=== PATIENT | male | born 1985 | race Two or more races ===

== ENCOUNTER 2018-02-15 23:47 | Inpatient (IN) | payer SELFPAY ==
[~2018-02-15] VITALS: Ht 162.6 cm; Wt 59.9 kg
--- NOTE | 2018-02-15 23:58 | Emergency Room Report ---
History of Present Illness General Chief Complaint: Pain Source: Patient, EMS Present Illness HPI Mr. Malhotra is a healthy 30-year-old male who presents without complaint to EMS. Police were called by onlooker who saw patient looking into car windows. He was brought by EMS without any complaints. He did admit to drinking beer and and 1/2 bottle of vodka. He is homeless. Allergies: Coded Allergies: No Known Allergies (Unverified , 02/15/18) Patient History Limited by: language barrier Past Medical History: none Social History: Reports: alcohol use Nursing Documentation-[facility] Past Medical History: No Stated History Review of Systems Constitutional: Denies: fever, malaise Cardiovascular: Denies: chest pain Gastrointestinal: Denies: abdominal pain All Other Systems: negative except mentioned in HPI Physical Exam Vital Signs Date Time Temp Pulse Resp B/P (MAP) Pulse Ox O2 Delivery O2 Flow Rate FiO2 02/15/18 23:43 99.7 120 18 142/92 100 Room Air 99.7 Sp02 EP Interpretation: reviewed, normal General Appearance: no apparent distress, alert, GCS 15, non-toxic, other - disheveled, only wearing dirty sweat pants, no shirts, no shoes Head: normocephalic, atraumatic ENT: hearing grossly normal, normal pharynx, no angioedema, normal voice Neck: full range of motion, supple/symm/no masses Respiratory: chest non-tender, lungs clear, normal breath sounds, speaking full sentences Cardiovascular #1: regular rate, rhythm, no edema Cardiovascular #2: 2+ carotid (R), 2+ carotid (L), 2+ radial (R), 2+ radial (L) , 2+ dorsalis pedis (R), 2+ dorsalis pedis (L) Gastrointestinal: normal bowel sounds, non tender, soft, non-distended, no guarding, no rebound Musculoskeletal: back normal, gait/station normal, normal range of motion, non- tender, calf tenderness Neurologic: alert, oriented x3, responsive, motor strength/tone normal, sensory intact, normal gait, speech normal Psychiatric: judgement/insight normal, memory normal, mood/affect normal, no suicidal/homicidal ideation Skin: normal color, no rash, warm/dry, well hydrated Lymphatic: no adenopathy Medical Decision Making Last Vital Signs Date Time Temp Pulse Resp B/P (MAP) Pulse Ox O2 Delivery O2 Flow Rate FiO2 02/15/18 23:43 99.7 120 18 142/92 100 Room Air 99.7 Lizeth Grier MD Feb 15, 2018 23:58
[2018-02-16] VITALS (32 sets, daily range): BP systolic 95–154; BP diastolic 60–98
[2018-02-16 00:52] LABS: HEMATOCRIT 35.1 % (42.0-52.0); HEMOGLOBIN 11.6 G/DL (14.2-18.0); MEAN CORPUSCULAR VOLUME 98 FL (80-99); PLATELET COUNT 95 K/UL (150-450); RED CELL DISTRIBUTION WIDTH 13.8 % (11.6-14.8); WHITE BLOOD COUNT 10.3 K/UL (4.8-10.8)
[2018-02-16 01:10] LABS: ANION GAP 10 mmol/L (5-15); BLOOD UREA NITROGEN 22 mg/dL (7-18); CALCIUM 9.8 MG/DL (8.5-10.1); CARBON DIOXIDE 26 MMOL/L (21-32); CHLORIDE 104 MMOL/L (98-107); CREATININE 1.1 MG/DL (0.55-1.30); POTASSIUM 3.4 MMOL/L (3.5-5.1); SODIUM 140 MMOL/L (136-145)
[2018-02-16 01:20] LABS: ALANINE AMINOTRANSFERASE 98 U/L (12-78); ALBUMIN 3.9 G/DL (3.4-5.0); ALKALINE PHOSPHATASE 251 U/L (46-116); ASPARTATE AMINO TRANSFERASE 277 U/L (15-37); BILIRUBIN,TOTAL 1.6 MG/DL (0.2-1.0)
[2018-02-16 01:22] LABS: BILIRUBIN,DIRECT 0.4 MG/DL (0.0-0.3)
[2018-02-16] MEDS ORDERED: LORazepam Inj 2mg/ml 1ml IV ONE ×3 (02:00→05:30)
[2018-02-16] MEDS ORDERED: chlordiazePOXIDE 25mg Cap ORAL ONE (02:30)
[2018-02-16] MEDS ORDERED: LORazepam Inj 2mg/ml 1ml ONE ×3 (02:31→03:33)
[2018-02-16] MEDS ORDERED: chlordiazePOXIDE 25mg Cap ONE (02:31)
[2018-02-16] MEDS ORDERED: Folic Acid 1 MG, Magnesium Sulfate 2,000 MG, Multivitamin - 12 Injection 10 ML, Thiamin... IV ONE ×5 (03:00)
[2018-02-16] MEDS ORDERED: LORazepam 20 MG in NS 90 ML IV ONE (03:15)
[2018-02-16] MEDS ORDERED: Thiamine HCl 100mg/ml 2 ml Inj ONE (04:14)
[2018-02-16] MEDS ORDERED: Folic Acid 5mg/ml Vial IV ONE (04:14)
[2018-02-16] MEDS ORDERED: MVI-12 10ml Inj IV ONE (04:18)
[2018-02-16] MEDS ORDERED: [UNRECOGNIZED DRUG - OTHER] IV ONE (05:15)
[2018-02-16] MEDS ORDERED: THIAMINE HCL IV ONE (05:15)
[2018-02-16] MEDS ORDERED: FOLIC ACID IV ONE (05:15)
[2018-02-16] MEDS ORDERED: MULTIVITAMIN IV ONE (05:15)
[2018-02-16 05:27] LABS: INR 1.1 (0.9-1.1)
--- NOTE | 2018-02-16 08:03 | History & Physical ---
History and Physical History & Physicial CC: Leg pain, AMS HPI: 30 M BIB PD to ED after being caught looking into cars, initially in no distress and only c/o b leg pain 2.2 being on his legs all day, started exhibiting signs of delerium in the ED and given concer for DT he was placed on an Ativan gtt. Per pt last EtOH one day prior, EtOH and UTOX neg in ED. At the time of my evaluation pt is sedated on an Ativan gtt, thus no hx obtainable. PMH: EtOH abuse, otherwise unknown PSH: Unknown ALL: NKDA MEDS: Unknown SHx: + EtOH, otherwise unknown FHx: Unknown ROS: Unobtainable PE: Vital Sign - Last 24 Hours 02/15/18 02/16/18 02/16/18 02/16/18 23:43 02:00 04:00 04:03 Temp 99.7 99.7 99.7 99.7 99.7 99.7 Pulse 120 108 105 Resp 18 18 22 22 B/P (MAP) 142/92 118/86 131/84 Pulse Ox 100 100 100 O2 Delivery Room Air Room Air Room Air Room Air 02/16/18 02/16/18 02/16/18 02/16/18 04:15 04:16 04:30 04:30 Temp 99.7 99.7 99.7 99.7 Pulse 95 104 Resp 19 21 19 19 B/P (MAP) 119/71 116/82 Pulse Ox 96 96 O2 Delivery Room Air Room Air Room Air Room Air 02/16/18 02/16/18 02/16/18 02/16/18 04:45 04:45 05:00 05:00 Temp 97.9 97.9 97.9 97.9 Pulse 108 104 Resp 19 19 22 23 B/P (MAP) 124/76 154/89 Pulse Ox 96 96 O2 Delivery Room Air Room Air Room Air Room Air 02/16/18 02/16/18 02/16/18 02/16/18 05:15 05:15 05:30 05:30 Temp 97.9 97.9 97.9 97.9 Pulse 101 97 Resp 20 20 19 19 B/P (MAP) 118/79 110/80 Pulse Ox 96 96 O2 Delivery Room Air Room Air Room Air Room Air 02/16/18 02/16/18 02/16/18 02/16/18 05:45 05:45 06:00 06:00 Temp 97.9 97.9 97.9 97.9 Pulse 94 94 Resp 18 18 B/P (MAP) 114/72 106/66 Pulse Ox 96 95 O2 Delivery Room Air Room Air Room Air Room Air 02/16/18 02/16/18 02/16/18 06:15 06:45 07:00 Temp 97.9 97.9 97.9 97.9 Pulse 90 94 Resp 17 17 17 B/P (MAP) 110/65 106/66 Pulse Ox 97 95 O2 Delivery Room Air Room Air Room Air Intake and Output 02/15/18 02/15/18 02/16/18 15:00 23:00 07:00 Intake Total 2100 ml Output Total 300 ml Balance 1800 ml Sedated RRR CTA S/NT/ND c NABS No C/C/E Laboratory Tests Test 02/16/18 00:30 02/16/18 04:30 Prothrombin Time 11.3 SEC (9.30-11.50) Prothromb Time International Ratio 1.1 (0.9-1.1) Sodium Level Pending Potassium Level Pending Chloride Level Pending Carbon Dioxide Level Pending Blood Urea Nitrogen Pending Creatinine Pending Estimat Glomerular Filtration Rate Pending Glucose Level Pending Calcium Level Pending Total Bilirubin Pending Aspartate Amino Transf (AST/SGOT) Pending Alanine Aminotransferase (ALT/SGPT) Pending Alkaline Phosphatase Pending Ammonia 76 umol/L (11-32) H Total Protein Pending Albumin Pending Globulin Pending ASSESSMENT: AMS, likely 2/2 DT EtOH abuse Abnormal LFT's Anemia Leg pain PLAN: ICU care Titrate Ativan gtt off Banana bag daily [id number] Replete K F/U final CT head Check U/A EEG Monitor MS as sedation wears off Duplex CXR Check B12 & Folate Trend LFT's Abdominal US NPO until MS better DVT Px: Hep SQ 90 min CCT Osmany Aguayo MD Feb 16, 2018 08:03
[2018-02-16 08:21] LABS: ALANINE AMINOTRANSFERASE 89 U/L (12-78); ALBUMIN 3.5 G/DL (3.4-5.0); ALKALINE PHOSPHATASE 237 U/L (46-116); ANION GAP 12 mmol/L (5-15); ASPARTATE AMINO TRANSFERASE 242 U/L (15-37); BILIRUBIN,TOTAL 1.2 MG/DL (0.2-1.0); BLOOD UREA NITROGEN 15 mg/dL (7-18); CALCIUM 8.5 MG/DL (8.5-10.1); CARBON DIOXIDE 23 MMOL/L (21-32); CHLORIDE 104 MMOL/L (98-107); CREATININE 0.7 MG/DL (0.55-1.30); POTASSIUM 2.9 MMOL/L (3.5-5.1); SODIUM 139 MMOL/L (136-145)
[2018-02-16 08:37] LABS: BILIRUBIN,DIRECT 0.6 MG/DL (0.0-0.3)
[2018-02-16] MEDS: Heparin 5000 units/ml inj SUBQ SCH ×2 (09:00→20:43)
[2018-02-16] MEDS: LORazepam 20 MG in NS 90 ML IV SCH ×2 (09:00→22:04)
[2018-02-16] MEDS ORDERED: Folic Acid 1 MG, Magnesium Sulfate 2,000 MG, Multivitamin - 12 Injection 10 ML, Thiamin... IV SCH ×5 (09:30)
--- NOTE | 2018-02-16 10:07 | Diagnostic Imaging Report ---
Indication: Altered level of consciousness Technique: Continuous helical CT scanning of the head was performed without intravenous contrast material. Axial and coronal 5 mm sections were generated. Radiation dose was minimized using automated exposure control Dose: Total Dose Length Product - DLP 1463.[address] Dose Index - CTDIvol(s) 70.38 mGy. Comparison: none Findings: The ventricular system is normal in size and configuration. There is no shift of midline structures. No abnormal extra-axial fluid collections are noted. There is no evidence of intracerebral bleeding. No other abnormal high or low density areas are noted within the brain. Intact calvarium. Visualized orbits and sinuses are unremarkable. Impression: Normal CT scan of the head without contrast material. This agrees with the preliminary interpretation provided overnight by [facility] teleradiology service. The CT scanner at [facility] is accredited by the [employer] and the scans are performed using protocols designed to limit radiation exposure to as low as reasonably achievable to attain images of sufficient resolution adequate for diagnostic evaluation.
[2018-02-16] MEDS: Folic Acid 1 MG, Magnesium Sulfate 2,000 MG, Multivitamin - 12 Injection 10 ML in NS 10... IV SCH (10:14)
[2018-02-16] MEDS: Thiamine 100mg in D5W 55ml IVPB SCH (10:14)
--- NOTE | 2018-02-16 10:34 | Diagnostic Imaging Report ---
Indication: Cough Technique: One view of the chest Comparison: none Findings: Inspiration is suboptimal. There is equivocal mild perihilar interstitial prominence and bronchial wall thickening. Lungs and pleural spaces are otherwise clear. The heart size is normal Impression: Equivocal mild perihilar interstitial prominence and bronchial wall thickening, could indicate bronchitis. Negative for infiltrate
--- NOTE | 2018-02-16 13:55 | Diagnostic Imaging Report ---
Indication: Abdominal pain, abnormal liver function tests and renal function tests, history of alcohol abuse Technique: Vanegas-scale and duplex images of the upper abdomen were obtained Comparison: none Findings: Gallbladder demonstrates no evidence of gallstones. There is some sludge in the gallbladder. The gallbladder wall is thickened, measures 4 mm thick. Sonographic Araiza's sign is negative. Common bile duct measures 4 mm in diameter. No intrahepatic biliary ductal dilatation. Liver demonstrates diffuse increased echogenicity. It demonstrates slight surface nodularity. It is enlarged. No focal abnormality. Portal vein and hepatic veins are patent. Pancreas is unremarkable. Spleen is unremarkable. Left kidney measures 11.1 cm in length. Right kidney measures 10.9 cm length. Both kidneys demonstrate normal echogenicity. There is no hydronephrosis. No focal abnormality . Abdominal aorta is partially obscured by bowel gas, visualized portions are non-aneurysmal . The urinary bladder is distended, calculated volume 646 mL. Calculated prostate volume is 14 mL. Impression: Slightly enlarged liver with increased hepatic echogenicity, compatible with hepatocellular disease. Very mild hepatic surface nodularity may indicate early cirrhotic changes Negative for gallstones. However, there is gallbladder wall thickening and edema. This could be reactive secondary to adjacent hepatocellular inflammation, versus hemodynamic derangements due to liver disease. This could also indicate acute acalculous cholecystitis or acute cholecystitis secondary to occult calculi. Consider nuclear medicine hepatobiliary scan if there is high clinical suspicion. Negative for dilated bile ducts Distended urinary bladder, calculated volume 646 mL Note suboptimal visualization of the abdominal aorta
[2018-02-16 16:46] LABS: APPEARANCE,URINE CLEAR; BILIRUBIN, URINE NEGATIVE (NEGATIVE); COLOR,URINE BROWN; GLUCOSE, URINE (UA) NEGATIVE (NEGATIVE); KETONES,URINE 2+ (NEGATIVE); LEUKOCYTE ESTERASE ,URINE NEGATIVE (NEGATIVE); NITRITE,URINE NEGATIVE (NEGATIVE); PH,URINE 7 (4.5-8.0); PROTEIN,URINE 2+ (NEGATIVE); UROBILINOGEN,URINE 8 MG/DL (0.0-1.0)
[2018-02-17] VITALS (31 sets, daily range): BP systolic 107–138; BP diastolic 58–98
[2018-02-17 06:25] LABS: BASOPHILS % (AUTO) 0.9 % (0.0-2.0); EOSINOPHILS % (AUTO) 2.6 % (0.0-3.0); HEMATOCRIT 32.5 % (42.0-52.0); HEMOGLOBIN 10.5 G/DL (14.2-18.0); LYMPHOCYTES % (AUTO) 10.8 % (20.0-45.0); MEAN CORPUSCULAR VOLUME 99 FL (80-99); NEUTROPHILS % (AUTO) 73.7 % (45.0-75.0); PLATELET COUNT 107 K/UL (150-450); RED BLOOD COUNT 3.27 M/UL (4.70-6.10); RED CELL DISTRIBUTION WIDTH 13.7 % (11.6-14.8); WHITE BLOOD COUNT 7.3 K/UL (4.8-10.8)
[2018-02-17 06:37] LABS: ANION GAP 9 mmol/L (5-15); BLOOD UREA NITROGEN 1 mg/dL (7-18); CALCIUM 8.4 MG/DL (8.5-10.1); CARBON DIOXIDE 24 MMOL/L (21-32); CHLORIDE 107 MMOL/L (98-107); CREATININE 0.6 MG/DL (0.55-1.30); SODIUM 140 MMOL/L (136-145)
--- NOTE | 2018-02-17 08:57 | Pulmonolgy Critical Care Note ---
Critical Care - Asmt/Plan Respiratory: monitor respiratory rate, adjust FIO2 Cardiac: continue to monitor HR/BP Renal: keep IV fluid - decrease rate to 100 Gastrointestinal: start feedings, other - GI eval Endocrine: monitor blood sugar Hematologic: monitor H/H Neurologic: other - Ativan gtt, taper off, MVI/thiamine/foalte, psych evakl Prophylaxis: Protonix, SCDs Disposition: keep in ICU Time Spent (Minutes): 50 Discussed with: nurses, consultants Critical Care - Objective Last 24 Hour Vital Signs Date Time Temp Pulse Resp B/P (MAP) Pulse Ox O2 Delivery O2 Flow Rate FiO2 02/17/18 07:00 88 26 137/92 (107) 93 02/17/18 07:00 26 Venturi Mask 100 02/17/18 06:30 92 25 128/93 (105) 88 02/17/18 06:00 89 32 131/82 (98) 89 02/17/18 06:00 32 Nasal Cannula 2.0 02/17/18 05:30 90 24 116/77 (90) 91 02/17/18 05:00 28 Nasal Cannula 2.0 02/17/18 05:00 98.6 92 28 121/87 (98) 90 98.6 02/17/18 04:30 99 32 124/87 (99) 91 02/17/18 04:00 100.0 95 34 125/86 (99) 88 100.0 02/17/18 04:00 2.0 02/17/18 04:00 34 Nasal Cannula 2.0 02/17/18 04:00 Nasal Cannula 2.0 02/17/18 03:30 95 27 121/74 (90) 93 02/17/18 03:05 93 02/17/18 03:00 95 30 120/75 (90) 91 02/17/18 03:00 30 Nasal Cannula 2.0 02/17/18 02:30 90 31 123/97 (106) 91 02/17/18 02:00 112 27 138/97 (111) 82 02/17/18 02:00 36 Nasal Cannula 2.0 02/17/18 01:30 98.7 111 36 118/71 (87) 82 98.7 02/17/18 01:00 27 Nasal Cannula 2.0 02/17/18 01:00 89 27 128/77 (94) 96 02/17/18 00:30 93 26 128/77 (94) 96 02/17/18 00:00 Nasal Cannula 2.0 02/17/18 00:00 2.0 02/17/18 00:00 26 Nasal Cannula 2.0 02/17/18 00:00 100.0 93 26 112/69 (83) 98 100.0 02/16/18 23:30 92 26 111/70 (84) 98 02/16/18 23:10 97 02/16/18 23:00 25 Nasal Cannula 2.0 02/16/18 23:00 97 26 113/69 (84) 97 02/16/18 22:30 93 29 126/79 (95) 97 02/16/18 22:04 26 2.0 02/16/18 22:00 95 32 117/86 (96) 93 02/16/18 22:00 32 Nasal Cannula 2.0 02/16/18 21:30 94 26 122/82 (95) 94 02/16/18 21:00 98 29 123/86 (98) 92 02/16/18 21:00 29 Nasal Cannula 2.0 02/16/18 20:30 95 31 94 02/16/18 20:00 27 Nasal Cannula 2.0 02/16/18 20:00 Nasal Cannula 2.0 02/16/18 20:00 2.0 02/16/18 20:00 100.0 96 27 121/98 (106) 91 100.0 02/16/18 19:30 104 02/16/18 19:30 102 28 131/75 (93) 91 02/16/18 19:00 108 18 115/81 (92) 91 02/16/18 19:00 23 Nasal Cannula 2.0 02/16/18 18:00 18 Nasal Cannula 2.0 02/16/18 18:00 101.1 104 23 108/70 (83) 95 101.1 02/16/18 17:00 99 18 107/68 (81) 95 02/16/18 17:00 18 Nasal Cannula 2.0 02/16/18 16:00 92 02/16/18 16:00 2.0 02/16/18 16:00 Nasal Cannula 2.0 02/16/18 16:00 19 Nasal Cannula 2.0 02/16/18 16:00 99.5 101 18 100/82 (88) 96 99.5 02/16/18 15:00 92 15 99/75 (83) 95 02/16/18 15:00 14 Room Air 02/16/18 14:00 18 Room Air 02/16/18 14:00 93 16 101/61 (74) 95 02/16/18 13:00 15 Room Air 02/16/18 13:00 95 23 101/60 (74) 96 02/16/18 12:00 97.9 91 22 104/71 (82) 95 97.9 02/16/18 12:00 20 Room Air 02/16/18 12:00 70 02/16/18 12:00 Room Air 02/16/18 11:00 16 Nasal Cannula 02/16/18 11:00 91 25 102/80 (87) 97 02/16/18 10:00 91 21 114/72 (86) 99 02/16/18 10:00 18 Room Air 02/16/18 09:00 94 16 95/61 (72) 99 02/16/18 09:00 18 Room Air Status: awake, other - tremulous but better Condition: improving HEENT: atraumatic, normocephalic Neck: full ROM Lungs: clear Heart: HR/BP stable Abdomen: soft, non-tender, active bowel sounds, feeding tube Extremities: no C/C/E Micro: Microbiology Date/Time Source Procedure Growth Status 02/16/18 04:10 Rectum Received Critical Care - Subjective ROS Limited/Unobtainable: Yes ICU Day: 3 Interval Events: Better, ST, tachypnea, O2 needs inc but currently 100% on RA States he feels better, no cough, no SOB, + tremors, no F/C, no CP Condition: improving IV Access: peripheral EKG Rhythm: Sinus Tachycardia FI02: 100 Fluids: D5NS@150 Drips: Ativan gtt @ 2 I&O: Intake and Output 02/16/18 02/17/18 19:00 07:00 Intake Total 3381.4 ml 1920 ml Output Total 1050 ml 2810 ml Balance 2331.4 ml -890 ml Intake IV Total 3381.4 ml 1920 ml Output Urine Total 1050 ml 2810 ml Labs: Laboratory Tests Test 02/16/18 16:00 02/17/18 05:50 Urine Color Brown Urine Appearance Clear Urine pH 7 (4.5-8.0) Urine Specific [place] 1.010 (1.005-1.035) Urine Protein 2+ (NEGATIVE) H Urine Glucose (UA) Negative (NEGATIVE) Urine Ketones 2+ (NEGATIVE) H Urine Blood Negative (NEGATIVE) Urine Nitrite Negative (NEGATIVE) Urine Bilirubin Negative (NEGATIVE) Urine Urobilinogen 8 MG/DL (0.0-1.0) H Urine Leukocyte Esterase Negative (NEGATIVE) Urine RBC 2-4 /HPF (0 - 0) H Urine WBC 2-4 /HPF (0 - 0) Urine Squamous Epithelial Cells None /LPF (NONE/OCC) Urine Amorphous Sediment Few /LPF (NONE) H Urine Bacteria Few /HPF (NONE) White Blood Count 7.3 K/UL (4.8-10.8) Red Blood Count 3.27 M/UL (4.70-6.10) L Hemoglobin 10.5 G/DL (14.2-18.0) L Hematocrit 32.5 % (42.0-52.0) L Mean Corpuscular Volume 99 FL (80-99) Mean Corpuscular Hemoglobin 32.1 PG (27.0-31.0) H Mean Corpuscular Hemoglobin Concent 32.3 G/DL (32.0-36.0) Red Cell Distribution Width 13.7 % (11.6-14.8) Platelet Count 107 K/UL (150-450) L Mean Platelet Volume 7.8 FL (6.5-10.1) Neutrophils (%) (Auto) 73.7 % (45.0-75.0) Lymphocytes (%) (Auto) 10.8 % (20.0-45.0) L Monocytes (%) (Auto) 12.0 % (1.0-10.0) H Eosinophils (%) (Auto) 2.6 % (0.0-3.0) Basophils (%) (Auto) 0.9 % (0.0-2.0) Sodium Level 140 MMOL/L (136-145) Potassium Level 3.0 MMOL/L (3.5-5.1) L Chloride Level 107 MMOL/L (98-107) Carbon Dioxide Level 24 MMOL/L (21-32) Anion Gap 9 mmol/L (5-15) Blood Urea Nitrogen 1 mg/dL (7-18) L Creatinine 0.6 MG/DL (0.55-1.30) Estimat Glomerular Filtration Rate > 60 mL/min (>60) Glucose Level 118 MG/DL (74-106) H Calcium Level 8.4 MG/DL (8.5-10.1) L Osmany Dunbar MD Feb 17, 2018 08:57
[2018-02-17] MEDS: LORazepam 20 MG in NS 90 ML IV SCH (09:00)
[2018-02-17] MEDS: Heparin 5000 units/ml inj SUBQ SCH ×2 (09:27→21:39)
[2018-02-17 09:50] LABS: ALANINE AMINOTRANSFERASE 98 U/L (12-78); ALBUMIN 3.1 G/DL (3.4-5.0); ALKALINE PHOSPHATASE 224 U/L (46-116); ASPARTATE AMINO TRANSFERASE 214 U/L (15-37); BILIRUBIN,DIRECT 0.7 MG/DL (0.0-0.3); BILIRUBIN,TOTAL 1.3 MG/DL (0.2-1.0)
[2018-02-17] MEDS: Folic Acid 1 MG, Magnesium Sulfate 2,000 MG, Multivitamin - 12 Injection 10 ML in NS 10... IV SCH (10:00)
[2018-02-17] MEDS: Thiamine 100mg in D5W 55ml IVPB SCH (10:02)
[2018-02-17] MEDS: Lactulose 10gm/15ml UDC ORAL SCH ×2 (13:29→17:55)
--- NOTE | 2018-02-17 16:11 | GI Initial Consult Note ---
History of Present Illness General Date patient seen: Feb 17, 2018 Time patient seen: 15:59 Reason for Hospitalization: Pain Referring physician: ARIEL KC Reason for Consultation: ABNORMAL LFTs Present Illness HPI Mr. Malhotra is a healthy 30-year-old male who presents without complaint to EMS. Police were called by onlooker who saw patient looking into car windows. He was brought by EMS without any complaints. He did admit to drinking beer and and 1/2 bottle of vodka. He is homeless. GI consulted for delirium tremens 2/2 to possible ETOH withdrawal. Pt seen, awake A&Ox NAD with no active s/sx of N/V/D. He presents today with anemia, abnormal LFTs; classic 2:1 AST:ALT ratio and hypokalemia. The patient denies any medical history. No history of endoscopy / colonoscopy. Serum alcohol levels are normal. Utox is negative. Abdominal US reviewed shows hepatic surface nodularity which may indicate early cirrhotic changes. Med list reviewed/reconciled: Yes Allergies: Coded Allergies: No Known Allergies (Unverified , 02/15/18) Patient History History Provided By: Patient, Medical Record [facility] Narrative Limited by: language barrier Past Medical History: none Social History: Reports: alcohol use Nursing Documentation-[facility] Past Medical History: No Stated History Social History: Reports: alcohol use Review of Systems All Other Systems: negative except mentioned in HPI Physical Exam Vital Signs Date Time Temp Pulse Resp B/P (MAP) Pulse Ox O2 Delivery O2 Flow Rate FiO2 02/15/18 23:43 99.7 120 18 142/92 100 Room Air 99.7 02/16/18 16:00 2.0 02/17/18 07:00 100 Sp02 EP Interpretation: reviewed, normal Labs Laboratory Tests Test 02/16/18 16:00 02/17/18 05:50 Urine Color Brown Urine Appearance Clear Urine pH 7 (4.5-8.0) Urine Specific [place] 1.010 (1.005-1.035) Urine Protein 2+ (NEGATIVE) H Urine Glucose (UA) Negative (NEGATIVE) Urine Ketones 2+ (NEGATIVE) H Urine Blood Negative (NEGATIVE) Urine Nitrite Negative (NEGATIVE) Urine Bilirubin Negative (NEGATIVE) Urine Urobilinogen 8 MG/DL (0.0-1.0) H Urine Leukocyte Esterase Negative (NEGATIVE) Urine RBC 2-4 /HPF (0 - 0) H Urine WBC 2-4 /HPF (0 - 0) Urine Squamous Epithelial Cells None /LPF (NONE/OCC) Urine Amorphous Sediment Few /LPF (NONE) H Urine Bacteria Few /HPF (NONE) White Blood Count 7.3 K/UL (4.8-10.8) Red Blood Count 3.27 M/UL (4.70-6.10) L Hemoglobin 10.5 G/DL (14.2-18.0) L Hematocrit 32.5 % (42.0-52.0) L Mean Corpuscular Volume 99 FL (80-99) Mean Corpuscular Hemoglobin 32.1 PG (27.0-31.0) H Mean Corpuscular Hemoglobin Concent 32.3 G/DL (32.0-36.0) Red Cell Distribution Width 13.7 % (11.6-14.8) Platelet Count 107 K/UL (150-450) L Mean Platelet Volume 7.8 FL (6.5-10.1) Neutrophils (%) (Auto) 73.7 % (45.0-75.0) Lymphocytes (%) (Auto) 10.8 % (20.0-45.0) L Monocytes (%) (Auto) 12.0 % (1.0-10.0) H Eosinophils (%) (Auto) 2.6 % (0.0-3.0) Basophils (%) (Auto) 0.9 % (0.0-2.0) Sodium Level 140 MMOL/L (136-145) Potassium Level 3.0 MMOL/L (3.5-5.1) L Chloride Level 107 MMOL/L (98-107) Carbon Dioxide Level 24 MMOL/L (21-32) Anion Gap 9 mmol/L (5-15) Blood Urea Nitrogen 1 mg/dL (7-18) L Creatinine 0.6 MG/DL (0.55-1.30) Estimat Glomerular Filtration Rate > 60 mL/min (>60) Glucose Level 118 MG/DL (74-106) H Calcium Level 8.4 MG/DL (8.5-10.1) L Total Bilirubin 1.3 MG/DL (0.2-1.0) H Direct Bilirubin 0.7 MG/DL (0.0-0.3) H Aspartate Amino Transf (AST/SGOT) 214 U/L (15-37) H Alanine Aminotransferase (ALT/SGPT) 98 U/L (12-78) H Alkaline Phosphatase 224 U/L (46-116) H Total Protein 6.5 G/DL (6.4-8.2) Albumin 3.1 G/DL (3.4-5.0) L General Appearance: well appearing, no apparent distress, alert Head: normocephalic EENT: PERRL/EOMI, normal ENT inspection Neck: supple Respiratory: normal breath sounds, no respiratory distress Cardiovascular: normal rate Gastrointestinal: normal inspection, non tender, soft, normal bowel sounds, non -distended Rectal: deferred Genitourinary: deferred Musculoskeletal: normal inspection, back normal Neurologic: normal inspection, alert, oriented x3, responsive Psychiatric: normal inspection, judgement/insight normal, memory normal Skin: normal inspection, normal color, no rash, warm/dry, palpation normal, well hydrated Lymphatic: normal inspection, no adenopathy Current Medications Current Medications Medications (Trade) Dose Ordered Sig/Jung Route PRN Reason Start Time Stop Time Status Last Admin Dose Admin Dextrose/ Electrolytes 1,000 ml @ 100 mls/hr Q10H IV 02/17/18 16:00 03/18/18 11:59 02/17/18 15:39 Folic Acid 1 mg/ Magnesium Sulfate 2000 mg/ Multivitamins 10 ml/Sodium Chloride 1,014.2 ml @ 125 mls/ hr Q24H IV 02/16/18 10:00 03/18/18 09:59 02/17/18 10:00 Heparin Sodium (Porcine) (Heparin 5000 units/ml) 5,000 units EVERY 12 HOURS SUBQ 02/16/18 09:00 03/18/18 08:59 02/17/18 09:27 Lactulose (Cephulac) 10 gm THREE TIMES A DAY ORAL 02/17/18 13:00 03/19/18 12:59 02/17/18 13:29 Lorazepam 20 mg/ Sodium Chloride 100 ml @ 0 mls/hr Q24H IV 02/16/18 09:00 02/23/18 08:59 02/17/18 09:00 Multivitamins (Multivitamins) 1 tab DAILY ORAL 02/17/18 09:30 03/19/18 09:29 02/17/18 09:58 Potassium Chloride 100 ml @ 100 mls/hr Q1H IVPB 02/17/18 10:00 02/17/18 15:59 02/17/18 15:00 Rifaximin (Xifaxan) 550 mg EVERY 12 HOURS ORAL 02/17/18 10:00 02/24/18 09:59 02/17/18 10:20 Thiamine HCl 100 mg/Dextrose 56 ml @ 112 mls/hr Q24H IVPB 02/16/18 10:00 03/18/18 09:59 02/17/18 10:02 GI: Plan Problems: (1) ETOH abuse (2) Hepatic encephalopathy (3) Fatty liver (4) Delirium tremens (5) Wernicke encephalopathy (6) Anemia Plan At this time, symptomatic control and supportive care ativan gtt per primary IV/PO hydration + electrolyte correction banana bag low dose lactulose + xifaxan, will consider dc medication if patient improves tomorrow. trend LFTs avoid alcohol fu labs, anemia work up, GGT, ammonia Discussed with Dr. Knox. Thank you for this patient referral, we will follow. The patient was seen and examined at bedside and all new and available data was reviewed in the patients chart. I agree with the above findings, impression and plan. (Patient seen earlier today. Signature stamp does not reflect patient encounter time.). - MD Trisha Crocker,[facility] TELEPH[facility]ERIL[facility]ER Feb 17, 2018 16:11
--- NOTE | 2018-02-17 20:00 | Electroencephalogram ---
DATE OF PROCEDURE: 02/16/2018 REQUESTING PHYSICIAN: Osmany Dunbar M.D. READING PHYSICIAN: Jameson Taylor M.D. HISTORY: This EEG was performed on a 30-year-old gentleman with an altered mental state. The purpose of this EEG was to evaluate the patient for the degree and type of cerebral dysfunction. TECHNICAL NOTE: This EEG was performed on a [employer] with electrodes placed on the scalp according to the International 10-20 system. [id number] and [id number] montages were used. The EEG was technically satisfactory and was performed while the patient was in a poorly responsive state. OBSERVATIONS: In the poorly responsive state, the background activity consisted of 1.5-2 Hz delta with intermixed 4-5 Hz theta activity. A large amount of superimposed beta activity was also seen throughout the tracing. No definite focal abnormalities or epileptiform discharges were seen. IMPRESSION: This is an abnormal EEG characterized by, 1. Slowing of the background predominantly in the delta range with some intermixed theta frequencies. 2. A large amount of superimposed beta activity. COMMENT: This study is consistent with an encephalopathy of a moderately severe degree most probably of a toxic nature as evidenced by the large amount of superimposed beta activity seen throughout the tracing. Clinical correlation is recommended. Jameson Taylor M.D., M.S.P.H. DR: EVA JOB#: [id number] MTDD
[2018-02-17] MEDS ORDERED: LORazepam Inj 2mg/ml 1ml IV PRN (20:45)
--- NOTE | 2018-02-17 21:26 | Cardiology Report ---
APPROVED REPORT EKG Measurement Heart [id number] Sinus tachycardia Otherwise normal ECG
[2018-02-18] VITALS (17 sets, daily range): BP systolic 100–138; BP diastolic 53–98
[2018-02-18 06:00] LABS: BASOPHILS % (AUTO) 0.9 % (0.0-2.0); EOSINOPHILS % (AUTO) 1.7 % (0.0-3.0); HEMATOCRIT 33.7 % (42.0-52.0); LYMPHOCYTES % (AUTO) 10.9 % (20.0-45.0); MEAN CORPUSCULAR VOLUME 98 FL (80-99); MONOCYTES % (AUTO) 12.9 % (1.0-10.0); NEUTROPHILS % (AUTO) 73.5 % (45.0-75.0); PLATELET COUNT 181 K/UL (150-450); RED BLOOD COUNT 3.44 M/UL (4.70-6.10); RED CELL DISTRIBUTION WIDTH 13.8 % (11.6-14.8); WHITE BLOOD COUNT 9.2 K/UL (4.8-10.8)
[2018-02-18 06:15] LABS: % IRON SATURATION 8 % (15-50); IRON 24 ug/dL (50-175); TOTAL IRON BINDING CAPACITY 285 ug/dL (250-450)
[2018-02-18 06:19] LABS: ALANINE AMINOTRANSFERASE 124 U/L (12-78); ALKALINE PHOSPHATASE 281 U/L (46-116); ASPARTATE AMINO TRANSFERASE 193 U/L (15-37); BILIRUBIN,DIRECT 0.7 MG/DL (0.0-0.3); BILIRUBIN,TOTAL 1.1 MG/DL (0.2-1.0); GAMMA GLUTAMYL TRANSPEPTIDASE 4050 U/L (5-85)
[2018-02-18 06:21] LABS: AMMONIA 106 umol/L (11-32)
[2018-02-18 06:31] LABS: ANION GAP 9 mmol/L (5-15); BLOOD UREA NITROGEN 4 mg/dL (7-18); CALCIUM 8.9 MG/DL (8.5-10.1); CARBON DIOXIDE 26 MMOL/L (21-32); CHLORIDE 107 MMOL/L (98-107); CREATININE 0.6 MG/DL (0.55-1.30); FERRITIN 285 NG/ML (8-388); POTASSIUM 3.5 MMOL/L (3.5-5.1); SODIUM 142 MMOL/L (136-145)
[2018-02-18] MEDS: Lactulose 10gm/15ml UDC ORAL SCH ×3 (08:46→17:30)
[2018-02-18] MEDS: Heparin 5000 units/ml inj SUBQ SCH ×2 (08:46→21:04)
[2018-02-18] MEDS: LORazepam 20 MG in NS 90 ML IV SCH (09:00)
[2018-02-18] MEDS: Thiamine 100mg in D5W 55ml IVPB SCH (10:09)
[2018-02-18] MEDS: Folic Acid 1 MG, Magnesium Sulfate 2,000 MG, Multivitamin - 12 Injection 10 ML in NS 10... IV SCH (10:09)
--- NOTE | 2018-02-18 12:40 | GI Progress Note ---
Assessment/Plan Problems: (1) Delirium tremens ICD Codes: F10.231 - Alcohol dependence with withdrawal delirium SNOMED: 3202747 (2) Wernicke encephalopathy ICD Codes: E51.2 - Wernicke's encephalopathy SNOMED: 46652014 (3) Anemia ICD Codes: D64.9 - Anemia, unspecified SNOMED: 643045772 (4) ETOH abuse ICD Codes: F10.10 - Alcohol abuse, uncomplicated SNOMED: 69016191 (5) Hepatic encephalopathy ICD Codes: K72.90 - Hepatic failure, unspecified without coma SNOMED: 68495514 (6) Fatty liver ICD Codes: K76.0 - Fatty (change of) liver, not elsewhere classified SNOMED: 695337226 Status: unchanged Status Narrative Discussed with Dr. Knox. Assessment/Plan folate deficiency iron deficiency elevated GTT At this time, symptomatic control and supportive care hold iron replacement given normal ferritin levels adv to low sodium diet ativan prn IV/PO hydration + electrolyte correction cont banana bag low dose lactulose + xifaxan trend LFTs avoid alcohol fu labs, trend LFTs, hep panel The patient was seen and examined at bedside and all new and available data was reviewed in the patients chart. I agree with the above findings, impression and plan. (Patient seen earlier today. Signature stamp does not reflect patient encounter time.). - Vamsi Knox MD Subjective Gastrointestinal/Abdominal: Reports: no symptoms Objective Last 24 Hour Vital Signs Date Time Temp Pulse Resp B/P (MAP) Pulse Ox O2 Delivery O2 Flow Rate FiO2 02/18/18 12:00 100.7 84 20 129/88 (102) 98 100.7 02/18/18 11:00 88 40 138/86 (103) 97 02/18/18 10:54 101.3 02/18/18 10:30 101.4 101.4 02/18/18 10:24 101.4 02/18/18 10:00 93 41 105/59 (74) 97 02/18/18 09:00 98 41 134/80 (98) 92 02/18/18 09:00 22 02/18/18 08:00 Room Air 02/18/18 08:00 88 02/18/18 08:00 100.3 86 25 126/98 (107) 92 100.3 02/18/18 07:00 99.6 86 27 119/91 (100) 96 99.6 02/18/18 06:00 99.0 86 27 132/90 (104) 96 99.0 02/18/18 05:00 98.6 81 27 125/85 (98) 96 98.6 02/18/18 04:00 2.0 02/18/18 04:00 Nasal Cannula 2.0 02/18/18 04:00 98.6 82 27 128/86 (100) 95 98.6 02/18/18 04:00 85 02/18/18 03:00 99.0 82 27 128/86 (100) 95 99.0 02/18/18 02:00 99.7 83 27 130/92 (105) 95 99.7 02/18/18 01:00 98.9 85 35 124/83 (97) 95 98.9 02/18/18 00:00 99.7 89 28 100/53 (69) 95 99.7 02/18/18 00:00 2.0 02/18/18 00:00 Nasal Cannula 2.0 02/18/18 00:00 85 02/17/18 23:00 100.3 93 34 122/80 (94) 94 100.3 02/17/18 22:00 100.0 94 34 129/82 (98) 94 100.0 02/17/18 21:00 102.5 103 30 115/71 (86) 94 102.5 02/17/18 20:20 102.8 02/17/18 20:00 2.0 02/17/18 20:00 Nasal Cannula 2.0 02/17/18 20:00 103 02/17/18 20:00 103.3 117 34 122/73 (89) 94 103.3 02/17/18 19:50 103.3 02/17/18 19:00 120 33 107/58 (74) 93 02/17/18 18:00 103.8 122 33 122/73 (89) 94 103.8 02/17/18 17:00 108 33 123/78 (93) 93 02/17/18 16:00 108 02/17/18 16:00 Nasal Cannula 2.0 02/17/18 16:00 2.0 02/17/18 16:00 101.0 110 32 118/68 (85) 91 101.0 02/17/18 15:00 108 32 118/68 (85) 91 02/17/18 14:00 105 33 125/79 (94) 92 02/17/18 13:00 94 28 130/84 (99) 89 Intake and Output 02/17/18 02/18/18 19:00 07:00 Intake Total 2113.5 ml 1320 ml Output Total 4500 ml 1400 ml Balance -2386.5 ml -80 ml Intake Oral 1050 ml 120 ml IV Total 1063.5 ml 1200 ml Output Urine Total 4500 ml 1400 ml # Bowel Movements 1 Laboratory Tests Test 02/18/18 05:21 White Blood Count 9.2 K/UL (4.8-10.8) Red Blood Count 3.44 M/UL (4.70-6.10) L Hemoglobin 11.0 G/DL (14.2-18.0) L Hematocrit 33.7 % (42.0-52.0) L Mean Corpuscular Volume 98 FL (80-99) Mean Corpuscular Hemoglobin 31.9 PG (27.0-31.0) H Mean Corpuscular Hemoglobin Concent 32.6 G/DL (32.0-36.0) Red Cell Distribution Width 13.8 % (11.6-14.8) Platelet Count 181 K/UL (150-450) # Mean Platelet Volume 7.5 FL (6.5-10.1) Neutrophils (%) (Auto) 73.5 % (45.0-75.0) Lymphocytes (%) (Auto) 10.9 % (20.0-45.0) L Monocytes (%) (Auto) 12.9 % (1.0-10.0) H Eosinophils (%) (Auto) 1.7 % (0.0-3.0) Basophils (%) (Auto) 0.9 % (0.0-2.0) Sodium Level 142 MMOL/L (136-145) Potassium Level 3.5 MMOL/L (3.5-5.1) Chloride Level 107 MMOL/L (98-107) Carbon Dioxide Level 26 MMOL/L (21-32) Anion Gap 9 mmol/L (5-15) Blood Urea Nitrogen 4 mg/dL (7-18) L Creatinine 0.6 MG/DL (0.55-1.30) Estimat Glomerular Filtration Rate > 60 mL/min (>60) Glucose Level 110 MG/DL (74-106) H Calcium Level 8.9 MG/DL (8.5-10.1) Iron Level 24 ug/dL (50-175) L Total Iron Binding Capacity 285 ug/dL (250-450) Percent Iron Saturation 8 % (15-50) L Unsaturated Iron Binding 261 ug/dL (112-346) Ferritin 285 NG/ML (8-388) Total Bilirubin 1.1 MG/DL (0.2-1.0) H Direct Bilirubin 0.7 MG/DL (0.0-0.3) H Gamma Glutamyl Transpeptidase 4050 U/L (5-85) H Aspartate Amino Transf (AST/SGOT) 193 U/L (15-37) H Alanine Aminotransferase (ALT/SGPT) 124 U/L (12-78) H Alkaline Phosphatase 281 U/L (46-116) H Ammonia 106 umol/L (11-32) H Total Protein 6.8 G/DL (6.4-8.2) Albumin 3.0 G/DL (3.4-5.0) L Vitamin B12 Level 610 PG/ML (193-986) Thyroid Stimulating Hormone (TSH) 1.891 uiU/mL (0.358-3.740) Free Thyroxine 1.12 NG/DL (0.76-1.46) Height (Feet): 5 Height (Inches): 4.00 Weight (Pounds): 145 General Appearance: WD/WN, no apparent distress, alert Cardiovascular: normal rate Respiratory/Chest: normal breath sounds, no respiratory distress Abdominal Exam: normal bowel sounds, non tender, soft Extremities: normal range of motion, non-tender Girish Rico NP Feb 18, 2018 12:40
[2018-02-18 14:10] LABS: APPEARANCE,URINE CLEAR; BILIRUBIN, URINE NEGATIVE (NEGATIVE); GLUCOSE, URINE (UA) NEGATIVE (NEGATIVE); KETONES,URINE NEGATIVE (NEGATIVE); LEUKOCYTE ESTERASE ,URINE NEGATIVE (NEGATIVE); NITRITE,URINE NEGATIVE (NEGATIVE); PH,URINE 8 (4.5-8.0); PROTEIN,URINE NEGATIVE (NEGATIVE); UROBILINOGEN,URINE 4 MG/DL (0.0-1.0)
[2018-02-18 14:12] LABS: COLOR,URINE YELLOW
--- NOTE | 2018-02-18 14:34 | Diagnostic Imaging Report ---
Indication: Chest pain, DYSPNEA Technique: One view of the chest Comparison: 02/16/2018 Findings: The less optimal inspiration on the prior exam. Previously questioned interstitial prominence is no longer evident. Lungs and pleural spaces currently clear. The heart size is upper limits of normal Impression: No definite acute process
--- NOTE | 2018-02-18 15:27 | Pulmonology Progress Note ---
Assessment/Plan Assessment/Plan Pulmonary Progress Note Asessment/Plan Respiratory: monitor respiratory rate, adjust FIO2, CXR pending Cardiac: continue to monitor HR/BP Renal: keep IV fluid - decrease rate to 100 Gastrointestinal: start feedings, other - GI eval Endocrine: monitor blood sugar Hematologic: monitor H/H Neurologic: other - Ativan gtt, taper off, MVI/thiamine/folate, psych evakl Prophylaxis: Protonix, SCDs Awaiting U/A, cultures Last 24 Hour Vital Signs Date Time Temp Pulse Resp B/P (MAP) Pulse Ox O2 Delivery O2 Flow Rate FiO2 02/17/18 07:00 88 26 137/92 (107) 93 02/17/18 07:00 26 Venturi Mask 100 02/17/18 06:30 92 25 128/93 (105) 88 02/17/18 06:00 89 32 131/82 (98) 89 02/17/18 06:00 32 Nasal Cannula 2.0 02/17/18 05:30 90 24 116/77 (90) 91 02/17/18 05:00 28 Nasal Cannula 2.0 02/17/18 05:00 98.6 92 28 121/87 (98) 90 98.6 02/17/18 04:30 99 32 124/87 (99) 91 02/17/18 04:00 100.0 95 34 125/86 (99) 88 100.0 02/17/18 04:00 2.0 02/17/18 04:00 34 Nasal Cannula 2.0 02/17/18 04:00 Nasal Cannula 2.0 02/17/18 03:30 95 27 121/74 (90) 93 02/17/18 03:05 93 02/17/18 03:00 95 30 120/75 (90) 91 02/17/18 03:00 30 Nasal Cannula 2.0 02/17/18 02:30 90 31 123/97 (106) 91 02/17/18 02:00 112 27 138/97 (111) 82 02/17/18 02:00 36 Nasal Cannula 2.0 02/17/18 01:30 98.7 111 36 118/71 (87) 82 98.7 02/17/18 01:00 27 Nasal Cannula 2.0 02/17/18 01:00 89 27 128/77 (94) 96 02/17/18 00:30 93 26 128/77 (94) 96 02/17/18 00:00 Nasal Cannula 2.0 02/17/18 00:00 2.0 02/17/18 00:00 26 Nasal Cannula 2.0 02/17/18 00:00 100.0 93 26 112/69 (83) 98 100.0 02/16/18 23:30 92 26 111/70 (84) 98 02/16/18 23:10 97 02/16/18 23:00 25 Nasal Cannula 2.0 02/16/18 23:00 97 26 113/69 (84) 97 02/16/18 22:30 93 29 126/79 (95) 97 02/16/18 22:04 26 2.0 02/16/18 22:00 95 32 117/86 (96) 93 02/16/18 22:00 32 Nasal Cannula 2.0 02/16/18 21:30 94 26 122/82 (95) 94 02/16/18 21:00 98 29 123/86 (98) 92 02/16/18 21:00 29 Nasal Cannula 2.0 02/16/18 20:30 95 31 94 02/16/18 20:00 27 Nasal Cannula 2.0 02/16/18 20:00 Nasal Cannula 2.0 02/16/18 20:00 2.0 02/16/18 20:00 100.0 96 27 121/98 (106) 91 100.0 02/16/18 19:30 104 02/16/18 19:30 102 28 131/75 (93) 91 02/16/18 19:00 108 18 115/81 (92) 91 02/16/18 19:00 23 Nasal Cannula 2.0 02/16/18 18:00 18 Nasal Cannula 2.0 02/16/18 18:00 101.1 104 23 108/70 (83) 95 101.1 02/16/18 17:00 99 18 107/68 (81) 95 02/16/18 17:00 18 Nasal Cannula 2.0 02/16/18 16:00 92 02/16/18 16:00 2.0 02/16/18 16:00 Nasal Cannula 2.0 02/16/18 16:00 19 Nasal Cannula 2.0 02/16/18 16:00 99.5 101 18 100/82 (88) 96 99.5 02/16/18 15:00 92 15 99/75 (83) 95 02/16/18 15:00 14 Room Air 02/16/18 14:00 18 Room Air 02/16/18 14:00 93 16 101/61 (74) 95 02/16/18 13:00 15 Room Air 02/16/18 13:00 95 23 101/60 (74) 96 02/16/18 12:00 97.9 91 22 104/71 (82) 95 97.9 02/16/18 12:00 20 Room Air 02/16/18 12:00 70 02/16/18 12:00 Room Air 02/16/18 11:00 16 Nasal Cannula 02/16/18 11:00 91 25 102/80 (87) 97 02/16/18 10:00 91 21 114/72 (86) 99 02/16/18 10:00 18 Room Air 02/16/18 09:00 94 16 95/61 (72) 99 02/16/18 09:00 18 Room Air Status: awake, other - tremulous but better Condition: improving HEENT: atraumatic, normocephalic Neck: full ROM Lungs: clear Heart: HR/BP stable Abdomen: soft, non-tender, active bowel sounds, feeding tube Extremities: no C/C/E Micro: Microbiology Date/Time Source Procedure Growth Status 02/16/18 04:10 Rectum Received Interval Events: Better, ST, tachypnea, O2 needs inc but currently 100% on RA States he feels better, no cough, no SOB, + tremors, no F/C, no CP Condition: improving IV Access: peripheral EKG Rhythm: Sinus Tachycardia FI02: 100 Fluids: D5NS@150 Drips: Ativan gtt @ 2 I&O: Intake and Output 02/16/18 02/17/18 19:00 07:00 Intake Total 3381.4 ml 1920 ml Output Total 1050 ml 2810 ml Balance 2331.4 ml -890 ml Intake IV Total 3381.4 ml 1920 ml Output Urine Total 1050 ml 2810 ml Labs: Laboratory Tests Test 02/16/18 16:00 02/17/18 05:50 Urine Color Brown Urine Appearance Clear Urine pH 7 (4.5-8.0) Urine Specific [place] 1.010 (1.005-1.035) Urine Protein 2+ (NEGATIVE) H Urine Glucose (UA) Negative (NEGATIVE) Urine Ketones 2+ (NEGATIVE) H Urine Blood Negative (NEGATIVE) Urine Nitrite Negative (NEGATIVE) Urine Bilirubin Negative (NEGATIVE) Urine Urobilinogen 8 MG/DL (0.0-1.0) H Urine Leukocyte Esterase Negative (NEGATIVE) Urine RBC 2-4 /HPF (0 - 0) H Urine WBC 2-4 /HPF (0 - 0) Urine Squamous Epithelial Cells None /LPF (NONE/OCC) Urine Amorphous Sediment Few /LPF (NONE) H Urine Bacteria Few /HPF (NONE) White Blood Count 7.3 K/UL (4.8-10.8) Red Blood Count 3.27 M/UL (4.70-6.10) L Hemoglobin 10.5 G/DL (14.2-18.0) L Hematocrit 32.5 % (42.0-52.0) L Mean Corpuscular Volume 99 FL (80-99) Mean Corpuscular Hemoglobin 32.1 PG (27.0-31.0) H Mean Corpuscular Hemoglobin Concent 32.3 G/DL (32.0-36.0) Red Cell Distribution Width 13.7 % (11.6-14.8) Platelet Count 107 K/UL (150-450) L Mean Platelet Volume 7.8 FL (6.5-10.1) Neutrophils (%) (Auto) 73.7 % (45.0-75.0) Lymphocytes (%) (Auto) 10.8 % (20.0-45.0) L Monocytes (%) (Auto) 12.0 % (1.0-10.0) H Eosinophils (%) (Auto) 2.6 % (0.0-3.0) Basophils (%) (Auto) 0.9 % (0.0-2.0) Sodium Level 140 MMOL/L (136-145) Potassium Level 3.0 MMOL/L (3.5-5.1) L Chloride Level 107 MMOL/L (98-107) Carbon Dioxide Level 24 MMOL/L (21-32) Anion Gap 9 mmol/L (5-15) Blood Urea Nitrogen 1 mg/dL (7-18) L Creatinine 0.6 MG/DL (0.55-1.30) Estimat Glomerular Filtration Rate > 60 mL/min (>60) Glucose Level 118 MG/DL (74-106) H Calcium Level 8.4 MG/DL (8.5-10.1) L Subjective ROS Limited/Unobtainable: No Allergies: Coded Allergies: No Known Allergies (Unverified , 02/15/18) Objective Last 24 Hour Vital Signs Date Time Temp Pulse Resp B/P (MAP) Pulse Ox O2 Delivery O2 Flow Rate FiO2 02/18/18 15:00 79 22 138/89 (105) 100 02/18/18 14:00 81 20 138/79 (98) 100 02/18/18 13:30 99.8 99.8 02/18/18 13:00 83 20 123/89 (100) 98 02/18/18 12:00 100.7 84 20 129/88 (102) 98 100.7 02/18/18 12:00 Room Air 02/18/18 11:35 102 02/18/18 11:00 88 40 138/86 (103) 97 02/18/18 10:54 101.3 02/18/18 10:30 101.4 101.4 02/18/18 10:24 101.4 02/18/18 10:00 93 41 105/59 (74) 97 02/18/18 09:00 98 41 134/80 (98) 92 02/18/18 09:00 22 02/18/18 08:00 Room Air 02/18/18 08:00 88 02/18/18 08:00 100.3 86 25 126/98 (107) 92 100.3 02/18/18 07:00 99.6 86 27 119/91 (100) 96 99.6 02/18/18 06:00 99.0 86 27 132/90 (104) 96 99.0 02/18/18 05:00 98.6 81 27 125/85 (98) 96 98.6 02/18/18 04:00 2.0 02/18/18 04:00 Nasal Cannula 2.0 02/18/18 04:00 98.6 82 27 128/86 (100) 95 98.6 02/18/18 04:00 85 02/18/18 03:00 99.0 82 27 128/86 (100) 95 99.0 02/18/18 02:00 99.7 83 27 130/92 (105) 95 99.7 02/18/18 01:00 98.9 85 35 124/83 (97) 95 98.9 02/18/18 00:00 99.7 89 28 100/53 (69) 95 99.7 02/18/18 00:00 2.0 02/18/18 00:00 Nasal Cannula 2.0 02/18/18 00:00 85 02/17/18 23:00 100.3 93 34 122/80 (94) 94 100.3 02/17/18 22:00 100.0 94 34 129/82 (98) 94 100.0 02/17/18 21:00 102.5 103 30 115/71 (86) 94 102.5 02/17/18 20:20 102.8 02/17/18 20:00 2.0 02/17/18 20:00 Nasal Cannula 2.0 02/17/18 20:00 103 02/17/18 20:00 103.3 117 34 122/73 (89) 94 103.3 02/17/18 19:50 103.3 02/17/18 19:00 120 33 107/58 (74) 93 02/17/18 18:00 103.8 122 33 122/73 (89) 94 103.8 02/17/18 17:00 108 33 123/78 (93) 93 02/17/18 16:00 108 02/17/18 16:00 Nasal Cannula 2.0 02/17/18 16:00 2.0 02/17/18 16:00 101.0 110 32 118/68 (85) 91 101.0 Intake and Output 02/17/18 02/18/18 19:00 07:00 Intake Total 2113.5 ml 1320 ml Output Total 4500 ml 1400 ml Balance -2386.5 ml -80 ml Intake Oral 1050 ml 120 ml IV Total 1063.5 ml 1200 ml Output Urine Total 4500 ml 1400 ml # Bowel Movements 1 Microbiology Date/Time Source Procedure Growth Status 02/16/18 04:10 Nasal Nares MRSA Culture - Final NO METHICILLIN RESISTANT STAPH AUREUS... Complete 02/16/18 04:10 Rectum - Final NO CARBAPENEM-RESISTANT ENTEROBACTERI... Complete 02/16/18 04:10 Rectum VRE Culture - Final NO VANCOMYCIN RESISTANT ENTEROCOCCUS ... Complete Laboratory Tests 02/18/18 05:21: White Blood Count 9.2, Red Blood Count 3.44L, Hemoglobin 11.0L, Hematocrit 33.7L , Mean Corpuscular Volume 98, Mean Corpuscular Hemoglobin 31.9H, Mean Corpuscular Hemoglobin Concent 32.6, Red Cell Distribution Width 13.8, Platelet Count 181#, Mean Platelet Volume 7.5, Neutrophils (%) (Auto) 73.5, Lymphocytes ( %) (Auto) 10.9L, Monocytes (%) (Auto) 12.9H, Eosinophils (%) (Auto) 1.7, Basophils (%) (Auto) 0.9, Sodium Level 142, Potassium Level 3.5, Chloride Level 107, Carbon Dioxide Level 26, Anion Gap 9, Blood Urea Nitrogen 4L, Creatinine 0.6, Estimat Glomerular Filtration Rate > 60, Glucose Level 110H, Calcium Level 8.9, Iron Level 24L, Total Iron Binding Capacity 285, Percent Iron Saturation 8L , Unsaturated Iron Binding 261, Ferritin 285, Total Bilirubin 1.1H, Direct Bilirubin 0.7H, Gamma Glutamyl Transpeptidase 4050H, Aspartate Amino Transf (AST /SGOT) 193H, Alanine Aminotransferase (ALT/SGPT) 124H, Alkaline Phosphatase 281H , Ammonia 106H, Total Protein 6.8, Albumin 3.0L, Vitamin B12 Level 610, Thyroid Stimulating Hormone (TSH) 1.891, Free Thyroxine 1.12 02/18/18 13:10: Urine Color Yellow, Urine Appearance Clear, Urine pH 8, Urine Specific [place] 1.015, Urine Protein Negative, Urine Glucose (UA) Negative, Urine Ketones Negative, Urine Blood Negative, Urine Nitrite Negative, Urine Bilirubin Negative , Urine Urobilinogen 4H, Urine Leukocyte Esterase Negative, Urine RBC 0, Urine WBC 0-2, Urine Squamous Epithelial Cells Occasional, Urine Bacteria Occasional Current Medications Medications (Trade) Dose Ordered Sig/Jung Route PRN Reason Start Time Stop Time Status Last Admin Dose Admin Acetaminophen (Tylenol) 325 mg Q6H PRN ORAL Mild Pain/Temp > 100.5 02/18/18 10:30 03/20/18 10:29 02/18/18 10:24 Dextrose/ Electrolytes 1,000 ml @ 100 mls/hr Q10H IV 02/17/18 16:00 03/18/18 11:59 02/18/18 11:41 Folic Acid 1 mg/ Magnesium Sulfate 2000 mg/ Multivitamins 10 ml/Sodium Chloride 1,014.2 ml @ 125 mls/ hr Q24H IV 02/16/18 10:00 03/18/18 09:59 02/18/18 10:09 Heparin Sodium (Porcine) (Heparin 5000 units/ml) 5,000 units EVERY 12 HOURS SUBQ 02/16/18 09:00 03/18/18 08:59 02/18/18 08:46 Lactulose (Cephulac) 10 gm THREE TIMES A DAY ORAL 02/17/18 13:00 03/19/18 12:59 02/18/18 13:16 Lorazepam (Ativan 2mg/ml 1ml) 2 mg Q4H PRN IV For Anxiety 02/17/18 20:45 02/24/18 20:44 Lorazepam 20 mg/ Sodium Chloride 100 ml @ 0 mls/hr Q24H IV 02/16/18 09:00 02/23/18 08:59 02/17/18 09:00 Multivitamins (Multivitamins) 1 tab DAILY ORAL 02/17/18 09:30 03/19/18 09:29 02/18/18 08:45 Rifaximin (Xifaxan) 550 mg EVERY 12 HOURS ORAL 02/17/18 10:00 02/24/18 09:59 02/18/18 08:45 Thiamine HCl 100 mg/Dextrose 56 ml @ 112 mls/hr Q24H IVPB 02/16/18 10:00 03/18/18 09:59 02/18/18 10:09 Elie Bundy MD Feb 18, 2018 15:27
[2018-02-18] MEDS ORDERED: LORazepam Inj 2mg/ml 1ml IV PRN ×2 (16:45)
[2018-02-18] MEDS ORDERED: Lactulose 10gm/15ml UDC ORAL SCH (18:00)
--- NOTE | 2018-02-18 20:30 | Consultation ---
History of Present Illness General Date patient seen: Feb 18, 2018 Chief Complaint: Pain Referring physician: ARIEL KC Reason for Consultation: ABNORMAL LFTs Present Illness HPI 30-year-old male who presents without complaint to EMS. Police were called by onlooker who saw patient looking into car windows. the pt is a chronic alcoholic and has been pw confusion tremor anxiety Allergies: Coded Allergies: No Known Allergies (Unverified , 02/15/18) Patient History Limited by: medical condition History Provided By: Patient, Medical Record, PMD Healthcare decision maker Resuscitation status Full Code Advanced Directive on File No Past Medical/Surgical History Past Medical/Surgical History: (1) Fatty liver (2) Hepatic encephalopathy (3) Delirium tremens (4) Wernicke encephalopathy (5) Anemia (6) Bacteremia Review of Systems Psychiatric: Reports: prior hx, anxiety, depressed feelings, emotional problems Physical Exam General Appearance: no apparent distress, alert Neurologic: oriented x 3, responsive, depressed affect Last 24 Hour Vital Signs Date Time Temp Pulse Resp B/P (MAP) Pulse Ox O2 Delivery O2 Flow Rate FiO2 02/18/18 16:00 86 02/18/18 16:00 99.0 87 25 134/87 (103) 92 99.0 02/18/18 15:00 79 22 138/89 (105) 100 02/18/18 14:00 81 20 138/79 (98) 100 02/18/18 13:30 99.8 99.8 02/18/18 13:00 83 20 123/89 (100) 98 02/18/18 12:00 100.7 84 20 129/88 (102) 98 100.7 02/18/18 12:00 Room Air 02/18/18 11:35 102 02/18/18 11:00 88 40 138/86 (103) 97 02/18/18 10:54 101.3 02/18/18 10:30 101.4 101.4 02/18/18 10:24 101.4 02/18/18 10:00 93 41 105/59 (74) 97 02/18/18 09:00 98 41 134/80 (98) 92 02/18/18 09:00 22 02/18/18 08:00 Room Air 02/18/18 08:00 88 02/18/18 08:00 100.3 86 25 126/98 (107) 92 100.3 02/18/18 07:00 99.6 86 27 119/91 (100) 96 99.6 02/18/18 06:00 99.0 86 27 132/90 (104) 96 99.0 02/18/18 05:00 98.6 81 27 125/85 (98) 96 98.6 02/18/18 04:00 2.0 02/18/18 04:00 Nasal Cannula 2.0 02/18/18 04:00 98.6 82 27 128/86 (100) 95 98.6 02/18/18 04:00 85 02/18/18 03:00 99.0 82 27 128/86 (100) 95 99.0 02/18/18 02:00 99.7 83 27 130/92 (105) 95 99.7 02/18/18 01:00 98.9 85 35 124/83 (97) 95 98.9 02/18/18 00:00 99.7 89 28 100/53 (69) 95 99.7 02/18/18 00:00 2.0 02/18/18 00:00 Nasal Cannula 2.0 02/18/18 00:00 85 02/17/18 23:00 100.3 93 34 122/80 (94) 94 100.3 02/17/18 22:00 100.0 94 34 129/82 (98) 94 100.0 02/17/18 21:00 102.5 103 30 115/71 (86) 94 102.5 Intake and Output 02/17/18 02/18/18 19:00 07:00 Intake Total 2113.5 ml 1320 ml Output Total 4500 ml 1400 ml Balance -2386.5 ml -80 ml Intake Oral 1050 ml 120 ml IV Total 1063.5 ml 1200 ml Output Urine Total 4500 ml 1400 ml # Bowel Movements 1 Laboratory Tests Test 02/18/18 05:21 02/18/18 13:10 White Blood Count 9.2 K/UL (4.8-10.8) Red Blood Count 3.44 M/UL (4.70-6.10) L Hemoglobin 11.0 G/DL (14.2-18.0) L Hematocrit 33.7 % (42.0-52.0) L Mean Corpuscular Volume 98 FL (80-99) Mean Corpuscular Hemoglobin 31.9 PG (27.0-31.0) H Mean Corpuscular Hemoglobin Concent 32.6 G/DL (32.0-36.0) Red Cell Distribution Width 13.8 % (11.6-14.8) Platelet Count 181 K/UL (150-450) # Mean Platelet Volume 7.5 FL (6.5-10.1) Neutrophils (%) (Auto) 73.5 % (45.0-75.0) Lymphocytes (%) (Auto) 10.9 % (20.0-45.0) L Monocytes (%) (Auto) 12.9 % (1.0-10.0) H Eosinophils (%) (Auto) 1.7 % (0.0-3.0) Basophils (%) (Auto) 0.9 % (0.0-2.0) Sodium Level 142 MMOL/L (136-145) Potassium Level 3.5 MMOL/L (3.5-5.1) Chloride Level 107 MMOL/L (98-107) Carbon Dioxide Level 26 MMOL/L (21-32) Anion Gap 9 mmol/L (5-15) Blood Urea Nitrogen 4 mg/dL (7-18) L Creatinine 0.6 MG/DL (0.55-1.30) Estimat Glomerular Filtration Rate > 60 mL/min (>60) Glucose Level 110 MG/DL (74-106) H Calcium Level 8.9 MG/DL (8.5-10.1) Iron Level 24 ug/dL (50-175) L Total Iron Binding Capacity 285 ug/dL (250-450) Percent Iron Saturation 8 % (15-50) L Unsaturated Iron Binding 261 ug/dL (112-346) Ferritin 285 NG/ML (8-388) Total Bilirubin 1.1 MG/DL (0.2-1.0) H Direct Bilirubin 0.7 MG/DL (0.0-0.3) H Gamma Glutamyl Transpeptidase 4050 U/L (5-85) H Aspartate Amino Transf (AST/SGOT) 193 U/L (15-37) H Alanine Aminotransferase (ALT/SGPT) 124 U/L (12-78) H Alkaline Phosphatase 281 U/L (46-116) H Ammonia 106 umol/L (11-32) H Total Protein 6.8 G/DL (6.4-8.2) Albumin 3.0 G/DL (3.4-5.0) L Vitamin B12 Level 610 PG/ML (193-986) Thyroid Stimulating Hormone (TSH) 1.891 uiU/mL (0.358-3.740) Free Thyroxine 1.12 NG/DL (0.76-1.46) Urine Color Yellow Urine Appearance Clear Urine pH 8 (4.5-8.0) Urine Specific [place] 1.015 (1.005-1.035) Urine Protein Negative (NEGATIVE) Urine Glucose (UA) Negative (NEGATIVE) Urine Ketones Negative (NEGATIVE) Urine Blood Negative (NEGATIVE) Urine Nitrite Negative (NEGATIVE) Urine Bilirubin Negative (NEGATIVE) Urine Urobilinogen 4 MG/DL (0.0-1.0) H Urine Leukocyte Esterase Negative (NEGATIVE) Urine RBC 0 /HPF (0 - 0) Urine WBC 0-2 /HPF (0 - 0) Urine Squamous Epithelial Cells Occasional /LPF Urine Bacteria Occasional /HPF (NONE) Height (Feet): 5 Height (Inches): 4.00 Weight (Pounds): 145 Medications Current Medications Medications (Trade) Dose Ordered Sig/Jung Route PRN Reason Start Time Stop Time Status Last Admin Dose Admin Acetaminophen (Tylenol) 325 mg Q6H PRN ORAL Mild Pain/Temp > 100.5 02/18/18 16:30 03/20/18 10:29 Dextrose/ Electrolytes 1,000 ml @ 100 mls/hr Q10H IV 02/18/18 16:00 03/18/18 11:59 02/18/18 16:38 Folic Acid (Folate) 1 mg DAILY ORAL 02/19/18 09:00 03/21/18 08:59 Heparin Sodium (Porcine) (Heparin 5000 units/ml) 5,000 units EVERY 12 HOURS SUBQ 02/18/18 21:00 03/18/18 08:59 Lactulose (Cephulac) 10 gm THREE TIMES A DAY ORAL 02/18/18 18:00 03/19/18 12:59 02/18/18 17:30 Lorazepam (Ativan 2mg/ml 1ml) 2 mg Q4H PRN IV For Anxiety 02/18/18 16:45 02/24/18 20:44 Multivitamins (Multivitamins) 1 tab DAILY ORAL 02/19/18 09:00 10/11/18 09:29 Rifaximin (Xifaxan) 550 mg EVERY 12 HOURS ORAL 02/18/18 21:00 02/24/18 09:59 Thiamine HCl (Vitamin B1) 100 mg DAILY ORAL 02/19/18 09:00 03/21/18 08:59 Assessment/Plan Assessment/Plan Alcohol dependence alcohol wd encephalopathy due to substance use d/o -valium prn -thiamine -folate Sandy Kim MD Feb 18, 2018 20:30
[2018-02-18] MEDS ORDERED: Heparin 5000 units/ml inj SUBQ SCH (21:00)
[2018-02-19] VITALS: BP 121/81
[2018-02-19 04:00] VITALS: BP 129/79
[2018-02-19 07:35] LABS: HEMATOCRIT 31.6 % (42.0-52.0); HEMOGLOBIN 10.5 G/DL (14.2-18.0); LYMPHOCYTES % (AUTO) 9.7 % (20.0-45.0); MEAN CORPUSCULAR VOLUME 98 FL (80-99); NEUTROPHILS % (AUTO) 71.3 % (45.0-75.0); PLATELET COUNT 245 K/UL (150-450); RED BLOOD COUNT 3.22 M/UL (4.70-6.10); RED CELL DISTRIBUTION WIDTH 13.4 % (11.6-14.8); WHITE BLOOD COUNT 9.5 K/UL (4.8-10.8)
[2018-02-19 08:00] VITALS: BP 118/68
[2018-02-19 08:15] LABS: BLOOD UREA NITROGEN 4 mg/dL (7-18); CALCIUM 8.7 MG/DL (8.5-10.1); CHLORIDE 104 MMOL/L (98-107); CREATININE 0.6 MG/DL (0.55-1.30); POTASSIUM 3.6 MMOL/L (3.5-5.1); SODIUM 137 MMOL/L (136-145)
[2018-02-19 08:17] LABS: ALANINE AMINOTRANSFERASE 92 U/L (12-78); ALBUMIN 2.9 G/DL (3.4-5.0); ALKALINE PHOSPHATASE 256 U/L (46-116); ASPARTATE AMINO TRANSFERASE 89 U/L (15-37); BILIRUBIN,DIRECT 0.7 MG/DL (0.0-0.3); BILIRUBIN,TOTAL 1.2 MG/DL (0.2-1.0)
[2018-02-19] MEDS ORDERED: LORazepam 20 MG in NS 90 ML IV SCH ×4 (09:00)
[2018-02-19] MEDS ORDERED: Thiamine 100mg tab ORAL SCH (09:00)
[2018-02-19] MEDS: Lactulose 10gm/15ml UDC ORAL SCH ×3 (09:04→17:33)
[2018-02-19] MEDS: Heparin 5000 units/ml inj SUBQ SCH ×2 (09:08→21:41)
[2018-02-19] MEDS ORDERED: Thiamine HCl 100 MG in D5W 55 ML IVPB SCH ×4 (10:00)
[2018-02-19] MEDS ORDERED: Folic Acid 1 MG, Magnesium Sulfate 2,000 MG, Multivitamin - 12 Injection 10 ML in NS 10... IV SCH ×8 (10:00)
[2018-02-19 10:29] LABS: CARBON DIOXIDE 21 MMOL/L (21-32)
[2018-02-19 10:36] LABS: ANION GAP 12 mmol/L (5-15)
--- NOTE | 2018-02-19 11:21 | GI Progress Note ---
Assessment/Plan Problems: (1) Delirium tremens ICD Codes: F10.231 - Alcohol dependence with withdrawal delirium SNOMED: 2670372 (2) Wernicke encephalopathy ICD Codes: E51.2 - Wernicke's encephalopathy SNOMED: 84765204 (3) Anemia ICD Codes: D64.9 - Anemia, unspecified SNOMED: 104220550 (4) ETOH abuse ICD Codes: F10.10 - Alcohol abuse, uncomplicated SNOMED: 71159479 (5) Hepatic encephalopathy ICD Codes: K72.90 - Hepatic failure, unspecified without coma SNOMED: 13823033 (6) Fatty liver ICD Codes: K76.0 - Fatty (change of) liver, not elsewhere classified SNOMED: 553359523 Status: stable Status Narrative Discussed with Dr. Knox. Assessment/Plan folate deficiency iron deficiency elevated GTT At this time, symptomatic control and supportive care hold iron replacement given normal ferritin levels low sodium diet, tolerating ativan prn IV/PO hydration + electrolyte correction low dose lactulose + xifaxan avoid alcohol fu labs, trend LFTs, hep panel The patient was seen and examined at bedside and all new and available data was reviewed in the patients chart. I agree with the above findings, impression and plan. (Patient seen earlier today. Signature stamp does not reflect patient encounter time.). - Vamsi Knox MD Subjective Gastrointestinal/Abdominal: Reports: no symptoms Objective Last 24 Hour Vital Signs Date Time Temp Pulse Resp B/P (MAP) Pulse Ox O2 Delivery O2 Flow Rate FiO2 02/19/18 09:25 Room Air 02/19/18 08:00 94 02/19/18 08:00 99.3 83 18 118/68 (85) 97 99.3 02/19/18 04:30 98.2 02/19/18 04:00 Room Air 02/19/18 04:00 100.9 02/19/18 04:00 98.2 90 20 129/79 (96) 92 98.2 02/19/18 04:00 86 02/19/18 00:00 88 02/19/18 00:00 Room Air 02/19/18 00:00 100.0 92 20 121/81 (94) 92 100.0 02/18/18 21:00 101.0 02/18/18 20:00 106 02/18/18 16:00 86 02/18/18 16:00 99.0 87 25 134/87 (103) 92 99.0 02/18/18 15:00 79 22 138/89 (105) 100 02/18/18 14:00 81 20 138/79 (98) 100 02/18/18 13:30 99.8 99.8 02/18/18 13:00 83 20 123/89 (100) 98 02/18/18 12:00 100.7 84 20 129/88 (102) 98 100.7 02/18/18 12:00 Room Air 02/18/18 11:35 102 Intake and Output 02/18/18 02/19/18 19:00 07:00 Intake Total 1996 ml 120 ml Output Total 2100 ml 1500 ml Balance -104 ml -1380 ml Intake Oral 190 ml 120 ml IV Total 1806 ml Output Urine Total 2100 ml 1500 ml # Voids 1 # Bowel Movements 1 Laboratory Tests Test 02/18/18 13:10 02/19/18 06:50 Urine Color Yellow Urine Appearance Clear Urine pH 8 (4.5-8.0) Urine Specific [place] 1.015 (1.005-1.035) Urine Protein Negative (NEGATIVE) Urine Glucose (UA) Negative (NEGATIVE) Urine Ketones Negative (NEGATIVE) Urine Blood Negative (NEGATIVE) Urine Nitrite Negative (NEGATIVE) Urine Bilirubin Negative (NEGATIVE) Urine Urobilinogen 4 MG/DL (0.0-1.0) H Urine Leukocyte Esterase Negative (NEGATIVE) Urine RBC 0 /HPF (0 - 0) Urine WBC 0-2 /HPF (0 - 0) Urine Squamous Epithelial Cells Occasional /LPF Urine Bacteria Occasional /HPF (NONE) White Blood Count 9.5 K/UL (4.8-10.8) Red Blood Count 3.22 M/UL (4.70-6.10) L Hemoglobin 10.5 G/DL (14.2-18.0) L Hematocrit 31.6 % (42.0-52.0) L Mean Corpuscular Volume 98 FL (80-99) Mean Corpuscular Hemoglobin 32.7 PG (27.0-31.0) H Mean Corpuscular Hemoglobin Concent 33.3 G/DL (32.0-36.0) Red Cell Distribution Width 13.4 % (11.6-14.8) Platelet Count 245 K/UL (150-450) Mean Platelet Volume 7.5 FL (6.5-10.1) Neutrophils (%) (Auto) 71.3 % (45.0-75.0) Lymphocytes (%) (Auto) 9.7 % (20.0-45.0) L Monocytes (%) (Auto) 16.0 % (1.0-10.0) H Eosinophils (%) (Auto) 2.0 % (0.0-3.0) Basophils (%) (Auto) 1.0 % (0.0-2.0) Sodium Level 137 MMOL/L (136-145) Potassium Level 3.6 MMOL/L (3.5-5.1) Chloride Level 104 MMOL/L (98-107) Carbon Dioxide Level 21 MMOL/L (21-32) Anion Gap 12 mmol/L (5-15) Blood Urea Nitrogen 4 mg/dL (7-18) L Creatinine 0.6 MG/DL (0.55-1.30) Estimat Glomerular Filtration Rate > 60 mL/min (>60) Glucose Level 105 MG/DL (74-106) Calcium Level 8.7 MG/DL (8.5-10.1) Total Bilirubin 1.2 MG/DL (0.2-1.0) H Direct Bilirubin 0.7 MG/DL (0.0-0.3) H Aspartate Amino Transf (AST/SGOT) 89 U/L (15-37) H Alanine Aminotransferase (ALT/SGPT) 92 U/L (12-78) H Alkaline Phosphatase 256 U/L (46-116) H Total Protein 6.1 G/DL (6.4-8.2) L Albumin 2.9 G/DL (3.4-5.0) L Hepatitis A IgM Antibody Pending Hepatitis B Surface Antigen Pending Hepatitis B Core IgM Antibody Pending Hepatitis C Antibody Pending Microbiology Date/Time Source Procedure Growth Status 02/18/18 12:10 Blood Blood Culture - Preliminary Resulted 02/18/18 13:10 Urine,Clean Catch Urine Culture - Preliminary NO GROWTH Resulted Height (Feet): 5 Height (Inches): 4.00 Weight (Pounds): 138 General Appearance: WD/WN, no apparent distress, alert Cardiovascular: normal rate Respiratory/Chest: normal breath sounds, no respiratory distress Abdominal Exam: normal bowel sounds, non tender, soft Extremities: normal range of motion, non-tender Girish Rico NP Feb 19, 2018 11:21
[2018-02-19 12:00] VITALS: BP 120/78
--- NOTE | 2018-02-19 14:25 | Pulmonology Progress Note ---
Assessment/Plan Problems: (1) Bacteremia (2) Delirium tremens (3) Hepatic encephalopathy (4) Wernicke encephalopathy (5) Fatty liver (6) Anemia Assessment/Plan MVI/thiamine/folate PO hydration PRN Ativan Monitor for w/draw F/U psych recs Start Vanco, ID eval F/U GI recs, lactulose/rifaxamin DVT Px: Hep SQ SW recs Subjective Allergies: Coded Allergies: No Known Allergies (Unverified , 02/15/18) Subjective Tm 101, VSS, stable on RA GPC in blood, CXR and UA neg, LFT's better Awake, not agitated No cough/CP/SOB/NVDC, no palpitations Objective Last 24 Hour Vital Signs Date Time Temp Pulse Resp B/P (MAP) Pulse Ox O2 Delivery O2 Flow Rate FiO2 02/19/18 09:25 Room Air 02/19/18 08:00 94 02/19/18 08:00 99.3 83 18 118/68 (85) 97 99.3 02/19/18 04:30 98.2 02/19/18 04:00 Room Air 02/19/18 04:00 100.9 02/19/18 04:00 98.2 90 20 129/79 (96) 92 98.2 02/19/18 04:00 86 02/19/18 00:00 88 02/19/18 00:00 Room Air 02/19/18 00:00 100.0 92 20 121/81 (94) 92 100.0 02/18/18 21:00 101.0 02/18/18 20:00 106 02/18/18 16:00 86 02/18/18 16:00 99.0 87 25 134/87 (103) 92 99.0 02/18/18 15:00 79 22 138/89 (105) 100 Intake and Output 02/18/18 02/19/18 19:00 07:00 Intake Total 1996 ml 120 ml Output Total 2100 ml 1500 ml Balance -104 ml -1380 ml Intake Oral 190 ml 120 ml IV Total 1806 ml Output Urine Total 2100 ml 1500 ml # Voids 1 # Bowel Movements 1 General Appearance: WD/WN, no acute distress HEENT: normocephalic, atraumatic, anicteric, mucous membranes moist Respiratory/Chest: chest wall non-tender, lungs clear, normal breath sounds, no respiratory distress, no accessory muscle use Cardiovascular: normal peripheral pulses, normal rate, regular rhythm Abdomen: normal bowel sounds, soft, non tender, no organomegaly, non distended Extremities: no cyanosis, no clubbing, no edema Microbiology Date/Time Source Procedure Growth Status 02/18/18 12:10 Blood Blood Culture - Preliminary Resulted 02/18/18 13:10 Urine,Clean Catch Urine Culture - Preliminary NO GROWTH Resulted Laboratory Tests 02/19/18 06:50: White Blood Count 9.5, Red Blood Count 3.22L, Hemoglobin 10.5L, Hematocrit 31.6L , Mean Corpuscular Volume 98, Mean Corpuscular Hemoglobin 32.7H, Mean Corpuscular Hemoglobin Concent 33.3, Red Cell Distribution Width 13.4, Platelet Count 245, Mean Platelet Volume 7.5, Neutrophils (%) (Auto) 71.3, Lymphocytes (% ) (Auto) 9.7L, Monocytes (%) (Auto) 16.0H, Eosinophils (%) (Auto) 2.0, Basophils (%) (Auto) 1.0, Sodium Level 137, Potassium Level 3.6, Chloride Level 104, Carbon Dioxide Level 21, Anion Gap 12, Blood Urea Nitrogen 4L, Creatinine 0.6, Estimat Glomerular Filtration Rate > 60, Glucose Level 105, Calcium Level 8.7, Total Bilirubin 1.2H, Direct Bilirubin 0.7H, Aspartate Amino Transf (AST/ SGOT) 89H, Alanine Aminotransferase (ALT/SGPT) 92H, Alkaline Phosphatase 256H, Total Protein 6.1L, Albumin 2.9L, Hepatitis A IgM Antibody [Pending], Hepatitis B Surface Antigen [Pending], Hepatitis B Core IgM Antibody [Pending], Hepatitis C Antibody [Pending] Current Medications Medications (Trade) Dose Ordered Sig/Jung Route PRN Reason Start Time Stop Time Status Last Admin Dose Admin Acetaminophen (Tylenol) 325 mg Q6H PRN ORAL Mild Pain/Temp > 100.5 02/18/18 16:30 03/20/18 10:29 02/19/18 04:00 Diazepam (Valium) 10 mg Q6H PRN ORAL For Anxiety 02/18/18 20:30 02/25/18 20:29 Folic Acid (Folate) 1 mg DAILY ORAL 02/19/18 09:00 03/21/18 08:59 02/19/18 09:05 Heparin Sodium (Porcine) (Heparin 5000 units/ml) 5,000 units EVERY 12 HOURS SUBQ 02/18/18 21:00 03/18/18 08:59 02/19/18 09:08 Lactulose (Cephulac) 10 gm THREE TIMES A DAY ORAL 02/18/18 18:00 03/19/18 12:59 02/19/18 09:04 Multivitamins (Multivitamins) 1 tab DAILY ORAL 02/19/18 09:00 03/19/18 09:29 02/19/18 09:04 Rifaximin (Xifaxan) 550 mg EVERY 12 HOURS ORAL 02/18/18 21:00 02/24/18 09:59 02/19/18 09:04 Thiamine HCl (Vitamin B1) 100 mg DAILY ORAL 02/19/18 09:00 03/21/18 08:59 02/19/18 09:04 Osmany Dunbar MD Feb 19, 2018 14:25
[2018-02-19 16:00] VITALS: BP 121/77
[2018-02-19] MEDS ORDERED: Vancomycin 1gm/D5W 275ml IVPB SCH ×2 (17:00)
[2018-02-19 19:56] VITALS: BP 125/84
--- NOTE | 2018-02-19 23:16 | General Progress Note ---
Assessment/Plan Status: stable, progressing Assessment/Plan Alcohol dependence alcohol wd encephalopathy due to substance use d/o -valium prn -thiamine -folate Subjective Date patient seen: Feb 19, 2018 Neurologic/Psychiatric: Reports: anxiety, depressed, emotional problems Allergies: Coded Allergies: No Known Allergies (Unverified , 02/15/18) Objective Last 24 Hour Vital Signs Date Time Temp Pulse Resp B/P (MAP) Pulse Ox O2 Delivery O2 Flow Rate FiO2 02/19/18 19:56 98.4 61 18 125/84 (98) 96 98.4 61 02/19/18 16:00 98.4 70 18 121/77 (92) 97 98.4 02/19/18 16:00 72 02/19/18 12:00 98.4 84 18 120/78 (92) 96 98.4 02/19/18 12:00 74 02/19/18 09:25 Room Air 02/19/18 08:00 94 02/19/18 08:00 99.3 83 18 118/68 (85) 97 99.3 02/19/18 04:30 98.2 02/19/18 04:00 Room Air 02/19/18 04:00 100.9 02/19/18 04:00 98.2 90 20 129/79 (96) 92 98.2 02/19/18 04:00 86 02/19/18 00:00 88 02/19/18 00:00 Room Air 02/19/18 00:00 100.0 92 20 121/81 (94) 92 100.0 Intake and Output 02/18/18 02/19/18 19:00 07:00 Intake Total 1996 ml 120 ml Output Total 2100 ml 1500 ml Balance -104 ml -1380 ml Intake Oral 190 ml 120 ml IV Total 1806 ml Output Urine Total 2100 ml 1500 ml # Voids 1 # Bowel Movements 1 Laboratory Tests 02/19/18 06:50: White Blood Count 9.5, Red Blood Count 3.22L, Hemoglobin 10.5L, Hematocrit 31.6L , Mean Corpuscular Volume 98, Mean Corpuscular Hemoglobin 32.7H, Mean Corpuscular Hemoglobin Concent 33.3, Red Cell Distribution Width 13.4, Platelet Count 245, Mean Platelet Volume 7.5, Neutrophils (%) (Auto) 71.3, Lymphocytes (% ) (Auto) 9.7L, Monocytes (%) (Auto) 16.0H, Eosinophils (%) (Auto) 2.0, Basophils (%) (Auto) 1.0, Sodium Level 137, Potassium Level 3.6, Chloride Level 104, Carbon Dioxide Level 21, Anion Gap 12, Blood Urea Nitrogen 4L, Creatinine 0.6, Estimat Glomerular Filtration Rate > 60, Glucose Level 105, Calcium Level 8.7, Total Bilirubin 1.2H, Direct Bilirubin 0.7H, Aspartate Amino Transf (AST/ SGOT) 89H, Alanine Aminotransferase (ALT/SGPT) 92H, Alkaline Phosphatase 256H, Total Protein 6.1L, Albumin 2.9L, Hepatitis A IgM Antibody [Pending], Hepatitis B Surface Antigen [Pending], Hepatitis B Core IgM Antibody [Pending], Hepatitis C Antibody [Pending] 02/19/18 15:10: Folate 17.8 Height (Feet): 5 Height (Inches): 4.00 Weight (Pounds): 138 General Appearance: no apparent distress, alert Sandy Kim MD Feb 19, 2018 23:16
[2018-02-20] VITALS: BP 133/77
[2018-02-20 03:59] VITALS: BP 124/72
[2018-02-20 04:00] VITALS: BP 124/72
[2018-02-20 08:00] VITALS: BP 116/73
[2018-02-20] MEDS ORDERED: Vancomycin 1gm/D5W 275ml IVPB SCH ×2 (10:00)
--- NOTE | 2018-02-20 11:08 | GI Progress Note ---
Assessment/Plan Problems: (1) Delirium tremens ICD Codes: F10.231 - Alcohol dependence with withdrawal delirium SNOMED: 1312143 (2) Wernicke encephalopathy ICD Codes: E51.2 - Wernicke's encephalopathy SNOMED: 04536205 (3) Anemia ICD Codes: D64.9 - Anemia, unspecified SNOMED: 705985617 (4) ETOH abuse ICD Codes: F10.10 - Alcohol abuse, uncomplicated SNOMED: 61676288 (5) Hepatic encephalopathy ICD Codes: K72.90 - Hepatic failure, unspecified without coma SNOMED: 71663196 (6) Fatty liver ICD Codes: K76.0 - Fatty (change of) liver, not elsewhere classified SNOMED: 132708223 Assessment/Plan folate deficiency iron deficiency elevated GTT Pt went AMA today. At this time, symptomatic control and supportive care hold iron replacement given normal ferritin levels low sodium diet, tolerating ativan prn IV/PO hydration + electrolyte correction low dose lactulose + xifaxan avoid alcohol fu labs, trend LFTs, hep panel The patient was seen and examined at bedside and all new and available data was reviewed in the patients chart. I agree with the above findings, impression and plan. (Patient seen earlier today. Signature stamp does not reflect patient encounter time.). - Vamsi Knox MD Objective Last 24 Hour Vital Signs Date Time Temp Pulse Resp B/P (MAP) Pulse Ox O2 Delivery O2 Flow Rate FiO2 02/20/18 08:00 98.8 90 23 116/73 (87) 97 98.8 02/20/18 04:00 97.7 71 18 124/72 (89) 96 97.7 71 02/20/18 00:00 99.5 72 19 133/77 (95) 96 99.5 72 02/19/18 23:45 99.5 02/19/18 23:15 100.5 02/19/18 19:56 98.4 61 18 125/84 (98) 96 98.4 61 02/19/18 16:00 98.4 70 18 121/77 (92) 97 98.4 02/19/18 16:00 72 02/19/18 12:00 98.4 84 18 120/78 (92) 96 98.4 02/19/18 12:00 74 Intake and Output 02/19/18 02/20/18 19:00 07:00 Intake Total 360 ml Output Total 900 ml Balance -540 ml Intake Oral 360 ml Output Urine Total 900 ml Laboratory Tests Test 02/19/18 15:10 Folate 17.8 NG/ML (8.6-58.9) Height (Feet): 5 Height (Inches): 4.00 Weight (Pounds): 132 Girish Rico NP Feb 20, 2018 11:08
--- NOTE | 2018-02-20 13:45 | Discharge Summary ---
Discharge Summary Discharge Summary _ DATE OF ADMISSION: 02/16/2018 DATE OF DISCHARGE: 02/20/2018. Patient signed AMA. REASON FOR ADMISSION: 30 years old male brought to emergency room by paramedics after bystander called the police while seeing the patient looking into the car windows. Patient admitted to being homeless. He admitted to drinking beer and vodka. Upon evaluation vital signs revealed tachycardia 120 ,low-grade fever 99.7, blood pressure 142/92, pulse oximetry was stable on room air. Patient appeared to be speaking gibberish and had tremors. He was unable to ambulate, reporting pain in his legs and unsteadiness. He was becoming progressively more delirious. He was speaking to people who were not present with constant, pressured speech. Alcohol level less than 3. Urine drug screen was negative. CT of the head revealed no acute intracranial pathology. EKG showed sinus tachycardia , no acute ischemic changes. Laboratory workup revealed no leukocytosis ,hemoglobin 11.6 hematocrit 35.1. Stable coagulation profile. Transaminitis noted with AST 277 ,ALT 98. Alkaline phosphatase 251. Total biliribin 1.6. Direct bilirubin 0.4. Potassium 3.4. Ammonia level 76. Patient admitted with diagnoses of altered mental status, likely secondary to delirium tremens, ETOH abuse, abnormal LFT, anemia, leg pain. CONSULTANTS: GI specialist Dr. Knox psychiatrist [facility] COURSE: Patient initially admitted to ICU. Patient started on banana bag and Ativan drip, which was down titrated in hope to wean soon. Patient was closely monitored for withdrawal. Mental status was closely monitored. Patient started on lactulose and Xifaxan. Potassium was replaced. EEG revealed findings consistent with encephalopathy of a moderate to severe degree, most probably of a toxic nature, as evidenced by the large amount of superimposed beta activity seen throughout the tracing. Venous duplex bilateral lower extremity revealed no evidence of acute DVT. Patient started on DVT prophylaxis . LFT were trending. Abdominal ultrasound demonstrated slightly enlarged liver with increased hepatic echogenicity, compatible with hepatocellular disease. Very mild hepatic surface nodularity may indicate early cirrhotic changes. No gallstones. Gallbladder wall thickening and edema noted, could be reactive secondary to adjacent hepatocellular inflammation versus hemodynamic derangement due to liver disease. Hepatitis panel was negative. Chest x-ray revealed mild perihilar interstitial prominence and bronchial wall thickening, possibly indicative of bronchitis. Negative for infiltrate. Patient noted to have low-grade fever. Blood culture revealed Staphylococcus coagulase negative on the 2 different occasions: 02/18/ and 02/19. Patient started on empiric vancomycin. ID consult was requested. Chest x-ray revealed no acute cardiopulmonary pathology, and urinalysis was negative for evidence of UTI. No leukocytosis. GI specialist closely followed. Patient was continued on lactulose and Xifaxan. Ammonia level was trending, still elevated 106. Anemia workup revealed folate and iron deficiency. No iron supplements were given due to normal ferritin level. Hemoglobin and hematocrit were closely monitored with goal to keep hemoglobin above 7. Patient was on banana bag with thiamine, folate, and MVI replacement, Patient started on low-sodium diet as mental status improved . Patient was able to tolerate diet . Symptomatic treatment provided . Antiemetics provided as needed Oral hydration was encouraged. Electrolytes were corrected as needed , renal parameters were closely monitored , and nephrotoxins were avoided. Patient counseled on avoidance of alcohol. Psychiatrist seen the patient , and diagnosed patient with alcohol dependence with withdrawal and encephalopathy due to the substance abuse disorder. Psychiatrist started on Valium on as needed basis . Mental status improved. LFT trending down. Patient was able to tolerate diet. 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 Patient decided to sign AGAINST MEDICAL ADVICE. The risks and consequences of signing AGAINST MEDICAL ADVICE were discussed with patient in detail. Patient verbalized understanding, nevertheless signed AMA form and left. FINAL DIAGNOSES: Acute toxic encephalopathy secondary to delirium tremens Delirium tremens Bacteremia Hepatic encephalopathy Wernicke encephalopathy Fatty liver Alcohol dependency and withdrawal Anemia : folic acid deficiency and iron deficiency I have been assigned to dictate discharge summary for this account. I was not involved in the patient's management. Celena Negron NP Feb 20, 2018 13:45
--- NOTE | 2018-02-20 23:14 | General Progress Note ---
Assessment/Plan Assessment/Plan Alcohol dependence alcohol wd encephalopathy due to substance use d/o -valium prn -thiamine -folate Subjective Allergies: Coded Allergies: No Known Allergies (Unverified , 02/15/18) Objective Last 24 Hour Vital Signs Date Time Temp Pulse Resp B/P (MAP) Pulse Ox O2 Delivery O2 Flow Rate FiO2 02/20/18 08:00 98.8 90 23 116/73 (87) 97 98.8 02/20/18 04:00 97.7 71 18 124/72 (89) 96 97.7 71 02/20/18 00:00 99.5 72 19 133/77 (95) 96 99.5 72 02/19/18 23:45 99.5 02/19/18 23:15 100.5 Intake and Output 02/19/18 02/20/18 19:00 07:00 Intake Total 360 ml Output Total 900 ml Balance -540 ml Intake Oral 360 ml Output Urine Total 900 ml Height (Feet): 5 Height (Inches): 4.00 Weight (Pounds): 132 Sandy Kim MD Feb 20, 2018 23:14
== END 2018-02-20 08:37 | disposition left against medical advice (07) | DRG 894 ==
LOC: EDBD 23:47 → EMR 23:57 → EDBD 02-16 03:18 → ICU 02-16 03:18 → EDBEDREQ 02-16 06:34 → 2E 02-18 16:07 → 4E 02-19 22:30
DX: F10.231 Alcohol dependence with withdrawal delirium (principal); E51.2 Wernicke's encephalopathy; R78.81 Bacteremia; G31.2 Degeneration of nervous system due to alcohol; K70.0 Alcoholic fatty liver; K72.90 Hepatic failure, unspecified without coma; D50.9 Iron deficiency anemia, unspecified; Z53.21 Procedure and treatment not carried out due to patient leaving prior to being seen by health care provider; Z59.0 Homelessness
CPT/HCPCS: 36415; 70450; 71045; 76700; 80048; 80053; 80076; 80307; 80329; 81001; 82140; 82248; 82607; 82728; 82746; 82977; 83540; 83550; 84439; 84443; 85025; 85610; 86705; 86709; 86803; 87040; 87081; 87086; 87181; 87340; 93005; 93970; 95819; 96361; 96374; 99285